=== PATIENT | female | born 1980 | race Caucasian/White ===

== ENCOUNTER 2016-08-23 20:00 | Emergency (ER) ==
[2016-08-23] MEDS ORDERED: NORCO-10 PO ONE (21:02)
[2016-08-23] MEDS ORDERED: REGLAN IM ONE (21:02)
[2016-08-23] MEDS ORDERED: BENADRYL IM ONE (21:02)
--- NOTE | 2016-08-23 21:02 | PROVIDER DOCUMENTATION ---
HPI-Headache - General Chief Complaint: Headache Stated Complaint: ANXIETY ATTACK Time Seen by Provider: 08/23/16 20:25 Source: patient Allergies/Adverse Reactions: Patient Allergies Allergy/AdvReac Type Severity Reaction Status Date / Time No Known Allergies Allergy Verified 08/23/16 20:20 Home Medications: Levothyroxine Sodium [Synthroid] 50 mcg PO DAILY 06/06/16 - History of Present Illness-Headache Nature of Presenting Problem: Pt is a 36 y/o F c chief complaint of migraine headache. Pt states that yesterday she had her usual aura of visual changes. She took Maxalt yesterday and had improvement. This morning her headache was worse. Pt states that normally her migraine resolves c Maxalt. Pt has a h/o anxiety as well. Pt states that on arrival at the ER, her headache has largely resolved but she feels numbness in her bilat upper extremities. Review of Systems - Adult - REVIEW OF SYSTEMS - ADULT Constitutional: reports: no symptoms reported. denies: chills, fatique Eyes: reports: no symptoms reported. denies: blurred vision, double vision Ears, Nose, Mouth & Throat: reports: no symptoms reported. denies: ear pain, nose pain Cardiovascular: reports: no symptoms reported. denies: chest pain, orthopnea Respiratory: reports: no symptoms reported. denies: cough, shortness of breath Gastrointestinal: reports: no symptoms reported. denies: abdominal pain, nausea Genitourinary: reports: no symptoms reported. denies: dysuria, hematuria Musculoskeletal: reports: no symptoms reported. denies: joint pain, joint swelling Integumentary: reports: no symptoms reported. denies: hives, itching Neurological: reports: headache/migraines. denies: numbness, paresthesia Psychiatric: reports: no symptoms reported. denies: anxiety, emotional problems Endocrine: reports: no symptoms reported. denies: cold intolerance, heat intolerance Hematologic/Lymphatic: reports: no symptoms reported. denies: blood clots, low blood count Allergic/Immunologic: reports: no symptoms reported. denies: allergic reactions , food allergy All Other Systems: Reviewed and Negative Past History - Adult - PAST MEDICAL HISTORY-ADULT Review of Records: reports: Old Records Reviewed, Nursing Assessment Review, Medications Reviewed, Social history reviewed & non-contributory. Major Childhood Illnesses: reports: denies history Cardiovascular: reports: denies history Respiratory: reports: denies history Gastrointestinal: reports: denies history Obstetrical/Gynecological: reports: ovarian cysts Genitourinary: reports: denies history Musculoskeletal: reports: denies history Neurological: reports: headaches/migraines Psychiatric: reports: anxiety, other (trichotillomania) Endocrine/Immune: reports: denies history Other Conditions: reports: other (trichotillomania) - PRIOR SURGERIES/PROCEDURES Surgical/Procedure History: reports: BTL (December 2014), other (Removal of cysts form neck) - IMMUNIZATION STATUS Childhood Immunizations: See Nurse Assessment Flu Vaccine: See Nurse Assessment - FAMILY HISTORY Family History: diabetes - SOCIAL HISTORY Smoking: denies Substance Use: none/never Alcohol Use Frequency: never Living Situation: family Physical Exam- Neurological - Physical Exam-Neuro Initial Vital Signs Reviewed: Yes General Appearance: appears well, alert, no apparent distress Eye Exam: bilateral eye: normal inspection, PERRL, EOMI HENMT: normocephalic/atraumatic, normal ENT inspection, TMs normal, pharynx normal Head Injury: no evidence of injury Neck: non-tender, full range of motion, supple, normal inspection Respiratory: chest non-tender, lungs clear, normal breath sounds, no pleuratic chest pain, no respiratory distress, no accessory muscle use Cardiovascular: normal peripheral pulses, regular rate, rhythm, no edema, no gallop, no JVD, no murmur Abdominal Exam: normal bowel sounds, non tender, soft, no organomegaly, no pulsatile mass Lymphatic: no adenopathy Extremity: normal range of motion, non-tender, normal gait, normal inspection, no pedal edema, no calf tenderness, normal capillary refill, pelvis stable terminal make up operator Exam: normal hearing, normal speech, PERRL Coordination/Gait: normal finger to nose, normal gait, negative Romberg's sign Motor/Sensory: no motor deficit, no sensory deficit, no pronator drift, negative Babinski's sign Neurologic: terminal make up operator II-XII nml as tested, no motor/sensory deficits Integumentary: normal color, normal turgor, warm/dry Psych/Mental Status: AL, normal mood/affect, normal thought content, normal thought process, oriented x 3 - Glascow Coma Scale Best Eye Response: (4) open spontaneously Best Verbal Response: (5) oriented Best Motor Response: (6) obeys commands Progress - PLAN OF CARE/RESULTS Progress/Plan/Lab Results: Orders Category Date Time Status ED: Urine Bedside ORDERED Care 08/23/16 20:22 Active HEAD W/O CONTRAST [CT] Stat Exams 08/23/16 21:02 Taken Diphenhydramine [Benadryl] Med 08/23/16 21:02 Discontinued 25 mg IM NOW ONE Hydrocodone/APAP 10 mg/325 mg [[place]-10] Med 08/23/16 21:02 Discontinued 1 each PO NOW ONE Metoclopramide [Reglan] Med 08/23/16 21:02 Discontinued 10 mg IM NOW ONE Vital Signs - 24 hr 08/23/16 20:13 Temperature 97.8 F Pulse Rate 78 Respiratory 18 Rate Blood Pressure 112/55 O2 Sat by Pulse 100 Oximetry - CT/MRI 1 CT Study: Head Impression: Normal CT Results: nad - Dr. Santamaria Departure - Departure Time of Disposition Order: 21:36 DIAGNOSIS: Migraine Qualifiers: Migraine type: unspecified Status migrainosus presence: without status migrainosus Intractability: not intractable Qualified Code(s): G43.909 - Migraine, unspecified, not intractable, without status migrainosus Disposition: HOME 01 Certified Medical Emergency: Emergent Condition: Stable Additional Instructions: ED Follow Up Instructions: You have been treated by a care provider in the Emergency Department. These instructions are being provided to you so you can have an understanding of how to care for yourself upon discharge. Upon discharge from the Emergency Department, you are responsible for making arrangements for follow-up care by a physician of your choice. Take all prescribed medications as directed. Return to the Emergency Department immediately for any new or worsening symptoms. You may call the Physician Referral phone number at [phone] to obtain a list of Physicians who are taking new patients. Prescriptions: Butalb/APAP/Caffeine [Fioricet] 1 each PO Q4H PRN PRN #14 capsule PRN Reason: Migraine Headache Referrals: Tien Benitez MD [Primary Care Provider] - [place] Diana LOPEZ MD [STAFF PHYSICIAN] - Attestation - Physician/ Mid-level Attestation Patient care was provided by Mid-level provider (TRUCK CATERER/PA):: Yes Mid-level provider:: Moustapha Duke Mid-level documentation review:: The Mid-level provider documentation, treatment plan and medical decision making was reviewed by the physician who agrees with all treatment and medical decision making by the MLP.
[2016-08-23] MEDS ORDERED: BENADRYL PO ONE (22:00)
[2016-08-23 22:15] VITALS: BP 110/56
--- NOTE | 2016-08-24 02:33 | Diag Imaging Result Document ---
PROCEDURE NAME: HEAD W/O CONTRAST - 08/23/2016 CT HEAD WITHOUT CONTRAST: COMPARISON: None available. FINDINGS: There is no discrete intracranial mass, mass effect, or intracranial hemorrhage. There is no evidence of hydrocephalus. There is no evidence of acute infarct given the limited sensitivity of CT versus MRI. The surrounding soft tissues and bony structures are essentially unremarkable. IMPRESSION: No evidence of acute intracranial pathology.
== END 2016-08-23 22:10 | disposition home or self-care (01) ==
LOC: ED 20:00
DX: G43.909 Migraine, unspecified, not intractable, without status migrainosus (principal); R51 Headache; F41.9 Anxiety disorder, unspecified; F63.3 Trichotillomania; Z87.42 Personal history of other diseases of the female genital tract; Z79.899 Other long term (current) drug therapy; Z83.3 Family history of diabetes mellitus
CPT/HCPCS: 70450; 81025; 96372; J1200; J2765

== ENCOUNTER 2016-10-20 17:50 | Emergency (ER) ==
[2016-10-20 18:04] VITALS: BP 123/66
--- NOTE | 2016-10-20 18:55 | PROVIDER DOCUMENTATION ---
HPI-General Adult - General Chief Complaint: Flu Symptoms Stated Complaint: RASH/BODYACHES Time Seen by Provider: 10/20/16 18:35 Source: patient Allergies/Adverse Reactions: Patient Allergies Allergy/AdvReac Type Severity Reaction Status Date / Time No Known Allergies Allergy Verified 10/20/16 20:25 Home Medications: Home Medication List Medication Instructions Recorded Confirmed Last Taken Type Butalb/APAP/Caffeine [Fioricet] 1 each PO Q4H PRN PRN #14 capsule 08/23/1610/20 Unknown Rx Acyclovir [Zovirax] 800 mg PO 5XDAY #40 tablet 10/20/16 Unknown Rx Amoxicillin [Amoxil] 875 mg PO BID #14 tablet 10/20/16 Unknown Rx Fluvoxamine [Luvox] 50 mg PO TID 10/20/16 10/20/16 10/20/16 13:00 History Hydroxyzine [Atarax] 25 mg PO TID PRN #20 tablet 10/20/16 Unknown Rx Levothyroxine Sodium [Synthroid] 50 mcg PO DAILY 10/20/16 10/20/16 10/20/16 07: 00 History - History of Present Illness -Gen Adult Nature of Presenting Problems: 36 y/o F c/o rash to R thoracic region with underlying pain/itching x 7 days. Pt states that she has also noted fever/chills at home x 1 day; unknown temp. Denies any other sxs. Reports cough at home x 1 day; cough is not productive. Review of Systems - Adult - REVIEW OF SYSTEMS - ADULT Constitutional: reports: see HPI, chills, fever Eyes: reports: no symptoms reported. denies: blurred vision, double vision Ears, Nose, Mouth & Throat: reports: no symptoms reported. denies: ear pain, nose pain Cardiovascular: reports: no symptoms reported. denies: chest pain, palpitations Respiratory: reports: see HPI, cough. denies: dyspnea on exertion, shortness of breath Gastrointestinal: reports: no symptoms reported. denies: nausea, vomiting Genitourinary: reports: no symptoms reported. denies: dysuria, frequency Musculoskeletal: reports: no symptoms reported. denies: joint pain, joint swelling Integumentary: reports: no symptoms reported. denies: nail changes, rash Neurological: reports: no symptoms reported. denies: numbness, paresthesia Psychiatric: reports: no symptoms reported Endocrine: reports: no symptoms reported. denies: cold intolerance, heat intolerance Hematologic/Lymphatic: reports: no symptoms reported. denies: easy bruising, prolonged bleeding Allergic/Immunologic: reports: no symptoms reported All Other Systems: Reviewed and Negative Past History - Adult - PAST MEDICAL HISTORY-ADULT Review of Records: reports: Nursing Assessment Review, Medications Reviewed Major Childhood Illnesses: reports: denies history Cardiovascular: reports: denies history Respiratory: reports: denies history Gastrointestinal: reports: denies history Obstetrical/Gynecological: reports: ovarian cysts Genitourinary: reports: denies history Musculoskeletal: reports: denies history Neurological: reports: headaches/migraines Psychiatric: reports: anxiety, other (trichotillomania) Endocrine/Immune: reports: denies history Other Conditions: reports: other (trichotillomania) - PRIOR SURGERIES/PROCEDURES Surgical/Procedure History: reports: BTL (December 2014), other (Removal of cysts form neck) - IMMUNIZATION STATUS Childhood Immunizations: See Nurse Assessment Flu Vaccine: See Nurse Assessment - FAMILY HISTORY Family History: diabetes - SOCIAL HISTORY Smoking: quit greater than 1 year Physical Exam-General - PHYSICAL EXAM-ADULT Initial Vital Signs Reviewed: Yes - CONSTITUTIONAL General Appearance: alert, mild distress - EYES Eyes: pink conjunctivae - HEAD, EARS, NOSE, MOUTH & THROAT HENMT: normocephalic/atraumatic, moist mucous membranes - NECK Neck: supple, normal inspection - RESPIRATORY Respiratory: lungs clear, normal breath sounds. negative: crackles, rales, rhonchi, stridor, wheezing - CARDIOVASCULAR Cardiovascular: regular rate, rhythm. negative: bradycardia, tachycardia - MUSCULOSKELETAL Back Exam: normal inspection Extremity: normal gait - SKIN Integumentary: normal color, normal turgor, warm/dry, zoster-like rash (noted to R breast) - NEUROLOGIC Neurologic: negative: aphasia - PSYCHIATRIC Psych/Mental Status: normal mood/affect, normal thought content, normal thought process, oriented x 3 Progress - PLAN OF CARE/RESULTS Progress/Plan/Lab Results: Orders Category Date Time Status CHEST-2 VIEWS [RAD] Stat Exams 10/20/16 18:49 Completed Flu Swab [INFLUENZA SCREEN A/B] Stat Lab 10/20/16 18:04 Completed Vital Signs Temp Pulse Resp BP Pulse Ox 10/20/16 17:59 98.6 F 85 18 123/66 100 No Known Allergies Allergy (Verified 10/20/16 20:25) Butalb/APAP/Caffeine [Fioricet] 1 each PO Q4H PRN PRN #14 capsule 08/23/16 Acyclovir [Zovirax] 800 mg PO 5XDAY #40 tablet 10/20/16 Amoxicillin [Amoxil] 875 mg PO BID #14 tablet 10/20/16 Fluvoxamine [Luvox] 50 mg PO TID 10/20/16 Hydroxyzine [Atarax] 25 mg PO TID PRN #20 tablet 10/20/16 Levothyroxine Sodium [Synthroid] 50 mcg PO DAILY 10/20/16 influenza - Discussed results and f/u with pt. - XRAY 1 XRAY Study: Chest XRAY Interpretation: No pNA Departure - Departure Time of Disposition Order: 19:13 DIAGNOSIS: Bronchitis Zoster Qualifiers: Herpes zoster complications: without complications Qualified Code(s): B02.9 - Zoster without complications Disposition: HOME 01 Certified Medical Emergency: Emergent Condition: Stable Additional Instructions: Take medications as directed. Follow up with PCP in 3-5 days for a recheck. Return if symptoms get worse. Wash hands after touching rash. ED Follow Up Instructions: You have been treated by a care provider in the Emergency Department. These instructions are being provided to you so you can have an understanding of how to care for yourself upon discharge. Upon discharge from the Emergency Department, you are responsible for making arrangements for follow-up care by a physician of your choice. Take all prescribed medications as directed. Return to the Emergency Department immediately for any new or worsening symptoms. You may call the Physician Referral phone number at [phone] to obtain a list of Physicians who are taking new patients. Prescriptions: Amoxicillin [Amoxil] 875 mg PO BID #14 tablet Hydroxyzine [Atarax] 25 mg PO TID PRN #20 tablet PRN Reason: Itching Acyclovir [Zovirax] 800 mg PO 5XDAY #40 tablet Referrals: Tien Benitez MD [Primary Care Provider] - Forms: Return to School/Parent Work Instructions: Shingles, Shingles, [id number], Acute Bronchitis Attestation - Physician/ FAHAD Attestation Patient care was provided by Advanced Practice Provider:: Yes Advanced Practice Provider:: Rebecca Iverson Advanced Practice Provider documentation review:: The Mid-level provider documentation, treatment plan and medical decision making was reviewed by the physician who agrees with all treatment and medical decision making by the MLP.
--- NOTE | 2016-10-21 07:39 | Diag Imaging Result Document ---
PROCEDURE NAME: CHEST-2 VIEWS - 10/20/2016 FRONTAL AND LATERAL CHEST, TWO VIEWS: FINDINGS: The lungs are well expanded. The heart is not enlarged. The vessels are not distended. There are no infiltrates. No pleural effusions. IMPRESSION: No pneumonia.
== END 2016-10-20 20:33 | disposition home or self-care (01) ==
LOC: ED 17:50
DX: B02.9 Zoster without complications (principal); J40 Bronchitis, not specified as acute or chronic; R21 Rash and other nonspecific skin eruption; R50.9 Fever, unspecified; R05 Cough; R51 Headache; F41.9 Anxiety disorder, unspecified; F63.3 Trichotillomania; Z79.899 Other long term (current) drug therapy
CPT/HCPCS: 71020; 87804